=== PATIENT | male | born 1960 | race Caucasian/White ===

== ENCOUNTER → 2016-05-17 | Outpatient (REF) | payer OTHER | LOC: M LAB REF 09:34 | PROVIDERS: ATTEND Physician Assistant | DX: R50.9 Fever, unspecified (principal) ==

== ENCOUNTER → 2016-07-30 | Outpatient (REF) | payer OTHER ==
[2016-08-01 00:06] LABS: Lyme Disease IgG/IgM Antibodie <0.91 ISR (0.00-0.90); Lyme Disease IgM Ab Quantitati <0.80 index (0.00-0.79)
== END ==
LOC: M LAB REF 13:02
PROVIDERS: ATTEND Family Medicine
DX: Z11.59 Encounter for screening for other viral diseases (principal)

== ENCOUNTER 2019-07-26 14:19 | Emergency (ER) | payer BC, OTHER ==
[~2019-07-26] VITALS: Ht 167.6 cm; Wt 77.3 kg
[2019-07-26 14:19] VITALS: BP 171/83
[2019-07-26] MEDS ORDERED: FLUTISP INH (14:28)
[2019-07-26] MEDS ORDERED: ENAL10TA2 PO (14:28)
[2019-07-26] MEDS ORDERED: SIMV20TA22 PO (14:28)
[2019-07-26] MEDS ORDERED: OLOP0.2S (14:28)
[2019-07-26] MEDS ORDERED: SERT50TA29 PO (14:28)
[2019-07-26] MEDS ORDERED: KETOROLAC TROMETHAMINE 10 MG TAB PO ONE (14:45)
== END 2019-07-26 15:27 | disposition home or self-care (01) ==
LOC: M ED 14:19
DX: S76.312A Strain of muscle, fascia and tendon of the posterior muscle group at thigh level, left thigh, initial encounter (principal); X58.XXXA Exposure to other specified factors, initial encounter; Y92.018 Other place in single-family (private) house as the place of occurrence of the external cause; I10 Essential (primary) hypertension; E78.5 Hyperlipidemia, unspecified; F41.9 Anxiety disorder, unspecified; Z79.899 Other long term (current) drug therapy

== ENCOUNTER → 2020-02-24 | Outpatient (CLI) | payer SELFPAY ==
[~2020-02-24] MED LIST: ENAL-36 PO; FLUTISP INH; OLOP0.2S; SERT50TA29 PO; SIMV20TA22 PO
== END ==
LOC: M LABSMTC 12:40
PROVIDERS: ATTEND Pediatrics
DX: Z20.828 Contact with and (suspected) exposure to other viral communicable diseases (principal)

== ENCOUNTER → 2021-06-11 | Outpatient (CLI) | payer BC, OTHER ==
[~2021-06-11] MED LIST changes: -OLOP0.2S; +OLOP2.5D7
== END ==
LOC: M RAD 12:59
PROVIDERS: ATTEND Internal Medicine Nephrology
DX: N18.31 Chronic kidney disease, stage 3a (principal)

== ENCOUNTER 2022-06-26 10:44 | Day surgery (SDC) | payer BC, OTHER ==
[~2022-06-26] VITALS: Ht 167.6 cm; Wt 77.9 kg
[~2022-06-26 10:44] MED LIST changes: -ENAL-36 PO; +ENAL1TAB50 PO; +FLUT50SP17 INH; -FLUTISP INH; +NS 1,000 ML IV ONE
[2022-06-26] MEDS ORDERED: LIDOCAINE 2% 100MG/5ML SDV (FOR ANES.) As Ordered ONE (12:37)
[2022-06-26] MEDS ORDERED: propofoL 200 MG/20 ML VIAL As Ordered ONE (12:37)
[2022-06-26 12:50] VITALS: BP 124/78
== END 2022-06-26 20:16 | disposition home or self-care (01) ==
LOC: M OPP 10:44
PROVIDERS: ATTEND Surgery
DX: Z12.11 Encounter for screening for malignant neoplasm of colon (principal); I10 Essential (primary) hypertension; E78.5 Hyperlipidemia, unspecified; F41.9 Anxiety disorder, unspecified; Z79.899 Other long term (current) drug therapy

== ENCOUNTER → 2023-04-09 | Outpatient (REF) | payer BC, OTHER ==
[~2023-04-09] MED LIST changes: -FLUT50SP17 INH; +FLUTISP INH; -NS 1,000 ML IV ONE
[2023-04-09 13:12] LABS: FOLATE > 24.0 NG/ML (>5.4); VITAMIN B12 LEVEL 428 PG/ML (211-911)
== END ==
LOC: M LAB REF 12:12
PROVIDERS: ATTEND Family Medicine
DX: D50.9 Iron deficiency anemia, unspecified (principal)

== ENCOUNTER → 2024-11-16 | Outpatient (CLI) | payer BC, OTHER ==
[~2024-11-16] MED LIST changes: +PROHANCE 279.3MG/ML 15ML VIAL As Ordered ONE
== END ==
LOC: M RAD 08:12
PROVIDERS: ATTEND Family Medicine
DX: H53.8 Other visual disturbances (principal)